=== PATIENT | male | born 1970 | race Caucasian/White ===

== ENCOUNTER 2017-09-30 18:02 | Emergency (ER) | payer BC ==
[~2017-09-30] VITALS: Ht 175.3 cm; Wt 90.7 kg
[2017-09-30 19:11] LABS: ABSOLUTE NEUTROPHILS 5.5 thou/uL (1.4-8.2); BASOPHILS 0.9 % (0.0-2.0); EOSINOPHILS 4.9 % (0.0-3.0); HEMATOCRIT 46.3 % (42.0-52.0); HEMOGLOBIN 15.8 gm/dL (14.0-18.0); LYMPHOCYTES 36.8 % (24.0-44.0); MCH 30.2 pg (26.0-34.0); MCHC 34.2 g/dL (28.0-37.0); MCV 88.4 fL (80.0-100.0); MONOCYTES 8.5 % (1.0-8.0); PLATELET COUNT 248 thou/uL (150-400); POLYS 48.9 % (36.0-66.0); RBC 5.24 mil/uL (4.50-6.00); RDW 13.6 % (10.5-14.5); WBC 11.2 thou/uL (4.0-11.0)
[2017-09-30 19:18] LABS: CALCIUM 9.2 mg/dL (8.5-10.1); POTASSIUM 3.6 mmol/L (3.5-5.1)
[2017-09-30 19:25] LABS: ALBUMIN 3.9 g/dL (3.4-5.0); TOTAL BILIRUBIN 0.3 mg/dL (<0.1-1.0); TOTAL PROTEIN 7.3 g/dL (6.4-8.2)
[2017-09-30 21:42] LABS: AMP/METHAMP Negative (Negative); BARBITURATES Negative (Negative); BENZODIAZEPINES Negative (Negative); COCAINE Negative (Negative); METHADONE Negative (Negative); OPIATES Negative (Negative); PCP Negative (Negative)
[2017-09-30] MEDS ORDERED: NAPROSYN500 MG PO (21:43)
[2017-09-30] MEDS ORDERED: NORFLEX100 MG PO (21:43)
[2017-09-30 21:48] LABS: URINE BILIRUBIN NEGATIVE (Negative); URINE BLOOD NEGATIVE (Negative); URINE CLARITY CLEAR; URINE COLOR YELLOW; URINE GLUCOSE-RANDOM* NEGATIVE (Negative); URINE KETONES NEGATIVE (Negative); URINE LEUKOCYTES NEGATIVE (Negative); URINE NITRITE NEGATIVE (Negative); URINE PROTEIN (DIPSTICK) NEGATIVE (Negative); URINE SPECIFIC GRAVITY <= 1.005 (1.005-1.035); URINE UROBILINOGEN 0.2 E.U./dl (0.2-1.0)
[2017-09-30] MEDS ORDERED: PHENERGAN 25 MG25 M1 PO (22:06)
[2017-09-30 22:38] VITALS: BP 105/76
== END 2017-09-30 22:39 | disposition home or self-care (01) ==
LOC: ER 18:02
PROVIDERS: Physician Assistant
DX: R51 Headache (principal); M43.6 Torticollis

== ENCOUNTER 2017-10-10 09:57 | Emergency (ER) | payer BC ==
[~2017-10-10] VITALS: Ht 175.3 cm; Wt 90.7 kg
--- NOTE | ~2017-10-10 | EKG ---
[facility] [place] [address] ELECTROCARDIOGRAM REPORT Name: MIGUEL ÁNGEL BYRD Room #: DEP James#: [id number] Admission: 10/10/17 Attend Phys: Discharge: 10/10/17 Date of : 68 Report #: [id number] THIS REPORT FOR: //name// [facility] ED Test Date: 2017-10-10 Test Time: 10:03:52 Pat Name: MIGUEL ÁNGEL BYRD Department: Room: Gender: Clinical Documentation Specialist: 11 : 1970 Requested By: Litzy Daugherty Order Number: [id number] MD: Nathan Johnson Measurements Intervals [place] Rate: 70 P: 36 ME: 157 QRS: 40 QRSD: 102 T: 14 QT: 379 QTc: 409 Interpretive Statements Sinus rhythm Ventricular premature complex Baseline wander in lead(s) V6 No previous ECG available for comparison Electronically Signed On 10-11-2017 8:26:29 CDT by Nathan Johnson [email or web address] <ELECTRONICALLY SIGNED> By: Nathan Johnson MD, [facility] 10/11/17 0826 1003 1003 Nathan Johnson MD, FACC /EPI
[~2017-10-10 09:57] MED LIST: NAPROSYN500 MG PO; NORFLEX100 MG PO; PHENERGAN 25 MG25 M1 PO
[2017-10-10 10:27] LABS: POC CA IONIZED 4.7 mg/dL (4.5-5.3); POC HEMOGLOBIN 15.6 g/dL (14.0-18.0); POC POTASSIUM 4.2 mmol/L (3.5-5.1)
[2017-10-10 10:29] LABS: ABSOLUTE NEUTROPHILS 6.5 thou/uL (1.4-8.2); BASOPHILS 0.6 % (0.0-2.0); EOSINOPHILS 3.4 % (0.0-3.0); LYMPHOCYTES 30.9 % (24.0-44.0); MCH 30.8 pg (26.0-34.0); MCHC 34.7 g/dL (28.0-37.0); MCV 88.7 fL (80.0-100.0); MONOCYTES 7.2 % (1.0-8.0); POLYS 57.9 % (36.0-66.0); RBC 5.34 mil/uL (4.50-6.00); RDW 13.5 % (10.5-14.5); WBC 11.2 thou/uL (4.0-11.0)
[2017-10-10 10:31] LABS: HEMOGLOBIN 16.4 gm/dL (14.0-18.0)
[2017-10-10 10:32] LABS: HEMATOCRIT 47.4 % (42.0-52.0); PLATELET COUNT 250 thou/uL (150-400)
[2017-10-10 10:38] LABS: CALCIUM 9.9 mg/dL (8.5-10.1); CREATININE 1.2 mg/dL (0.7-1.3); POTASSIUM 4.3 mmol/L (3.5-5.1)
[2017-10-10 10:44] LABS: APTT 27.2 Seconds (24.5-32.8)
[2017-10-10 11:41] LABS: URINE BILIRUBIN NEGATIVE (Negative); URINE BLOOD NEGATIVE (Negative); URINE CLARITY CLEAR; URINE COLOR YELLOW; URINE GLUCOSE-RANDOM* NEGATIVE (Negative); URINE KETONES NEGATIVE (Negative); URINE LEUKOCYTES-REFLEX NEGATIVE (Negative); URINE NITRITE-REFLEX NEGATIVE (Negative); URINE PROTEIN (DIPSTICK) NEGATIVE (Negative); URINE SPECIFIC GRAVITY <= 1.005 (1.005-1.035); URINE UROBILINOGEN 0.2 E.U./dl (0.2-1.0)
[2017-10-10] MEDS ORDERED: MECLIZINE HCL25 MG PO (12:51)
[2017-10-10 13:28] VITALS: BP 131/74
== END 2017-10-10 13:29 | disposition home or self-care (01) ==
LOC: ER 09:57
PROVIDERS: Emergency Medicine
DX: G43.909 Migraine, unspecified, not intractable, without status migrainosus (principal); R11.2 Nausea with vomiting, unspecified; R42 Dizziness and giddiness; R53.1 Weakness